=== PATIENT | female | born 1990 | race Caucasian/White ===

== ENCOUNTER 2019-09-15 18:28 | Emergency (ER) | payer MEDICAID, SELFPAY ==
[2019-09-15 18:34] VITALS: BP 126/91; PULSE 75; RESP 18; TEMP 36.6; O2SAT 100; BMI 22.1
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
[2019-09-15] MEDS: HYDROcodone-acetaminophen 5-325 mg Tablet 1 TAB PO (19:03)
[2019-09-15 19:48] VITALS: BP 138/84; PULSE 96; RESP 16; O2SAT 97
== END 2019-09-15 19:55 | disposition home or self-care (01) ==
PROVIDERS: Emergency Provider Nurse Practitioner Family; PCP Family Medicine
DX: M79.604 Pain in right leg (principal); Y04.2XXA Assault by strike against or bumped into by another person, initial encounter
CPT/HCPCS: 12345; 70450; 72125; 73552; 99281; 99283

== ENCOUNTER → 2019-10-10 13:40 | Outpatient (BNVA) | payer MEDICAID, SELFPAY | PROVIDERS: PCP Family Medicine; Visit Provider Psychiatry & Neurology Psychiatry | DX: F32.9 Major depressive disorder, single episode, unspecified (principal); F43.10 Post-traumatic stress disorder, unspecified; F33.1 Major depressive disorder, recurrent, moderate | CPT/HCPCS: 90792 ==

== ENCOUNTER → 2019-10-18 16:02 | Outpatient (BNVA) | payer MEDICAID, SELFPAY | PROVIDERS: PCP Family Medicine; Visit Provider Psychiatry & Neurology Psychiatry | DX: F33.1 Major depressive disorder, recurrent, moderate (principal); F43.10 Post-traumatic stress disorder, unspecified | CPT/HCPCS: 99214 ==

== ENCOUNTER → 2022-08-22 15:22 | Outpatient (BNVA) | payer MEDICAID, SELFPAY | PROVIDERS: PCP Family Medicine; Visit Provider Nurse Practitioner Family | DX: M79.645 Pain in left finger(s) (principal); S61.213A Laceration without foreign body of left middle finger without damage to nail, initial encounter; X58.XXXA Exposure to other specified factors, initial encounter; M21.242 Flexion deformity, left finger joints | CPT/HCPCS: 73130 ==

== ENCOUNTER 2022-09-09 06:00 | Outpatient (CLI) | payer MEDICAID, SELFPAY | END 2022-09-09 06:01 | LOC: SOT 09-14 10:33 | PROVIDERS: PCP Family Medicine; Visit Provider Nurse Practitioner Family | DX: Z46.89 Encounter for fitting and adjustment of other specified devices (principal); M20.022 Boutonniere deformity of left finger(s) | CPT/HCPCS: 97760; L3925 ==